=== PATIENT | female | born 1935 | race Caucasian/White ===

== ENCOUNTER → 2016-11-11 | Outpatient (CLI) | payer MEDICARE, OTHER | END | disposition disaster alternative care site (69) | LOC: LCNC 09:21 | DX: E78.5 Hyperlipidemia, unspecified (principal) ==

== ENCOUNTER → 2017-05-16 | Outpatient (CLI) | payer MEDICARE, OTHER | END | disposition disaster alternative care site (69) | LOC: GCAR 09:32 | DX: I25.10 Atherosclerotic heart disease of native coronary artery without angina pectoris (principal) ==